=== PATIENT | female | born 1955 | race Caucasian/White ===

== ENCOUNTER 2017-05-28 00:38 | Emergency (ER) | payer OTHER ==
[~2017-05-28] VITALS: Ht 152.4 cm; Wt 65.0 kg
[~2017-05-28 00:38] MED LIST: AMLO-147 PO; ATOR20TA38 PO; BENA40TA41 PO; FAMO40TA52 PO; HYD25 PO; INSU100C SC; LANT3I SC; MAG355OR15 PO; MTF1000T PO; ONDA-43 PO; PANT40TA4 PO; PERCOCET PO; PROP20TA4 PO
[2017-05-28 00:42] VITALS: Ht 152.4 cm; Wt 65.0 kg
[2017-05-28] MEDS ORDERED: ONDANSETRON 4 MG INJ IV STA (00:44)
[2017-05-28] MEDS ORDERED: morphine 4 MG/ML VIAL IV STA (00:44)
[2017-05-28 01:21] LABS: ADD SCAN DIFF NO
--- NOTE | 2017-05-28 01:22 | RADRPT ---
PROCEDURE: XR Chest. CLINICAL INDICATION: Chest pain. TECHNIQUE: Single frontal view of the chest. COMPARISON: None FINDINGS: The cardiomediastinal silhouette is within normal limits. The lungs are clear. No signs of pleural f luid or pneumothorax are seen. The osseous structures and soft tissues are unremarkable. IMPRESSION: No evidence for active cardiopulmonary disease. RPTAT: [facility] Physician Bruna Date Time Electronically viewed and signed by Physician Bruna on 05/28/2017 01:22 RS/
[2017-05-28 01:27] LABS: BASOPHILS % 0.8 % (0.0-2.0); EOSINOPHILS # 0.1 10^3/ul (0.0-0.5); HEMATOCRIT 37.4 % (37.0-47.0); HEMOGLOBIN 13.4 g/dl (12.0-16.0); LYMPHOCYTES # 1.8 10^3/ul (0.8-2.9); LYMPHOCYTES % 46.2 % (15.0-51.0); MEAN CORPUSCULAR HEMOGLOBIN 32.6 pg (29.0-33.0); MEAN CORPUSCULAR HGB CONC 35.8 g/dl (32.0-37.0); MEAN PLATELET VOLUME 10.8 fl (7.4-10.4); MONOCYTE # 0.4 10^3/ul (0.3-0.9); MONOCYTES % 10.6 % (0.0-11.0); NEUTROPHIL # 1.6 10^3/ul (1.6-7.5); NEUTROPHILS % 39.1 % (39.0-77.0); PLATELET COUNT 102 10^3/UL (140-415); RED BLOOD COUNT 4.11 10^6/ul (4.20-5.40); RED CELL DISTRIBUTION WIDTH 13.2 % (11.5-14.5)
[2017-05-28 01:38] LABS: INR 1.15; PROTIME 14.7 Sec (12.2-14.2); PT RATIO 1.1
[2017-05-28 01:39] LABS: PARTIAL THROMBOPLASTIN TIME 28.6 Sec (25.0-35.0)
[2017-05-28 01:42] LABS: ALANINE AMINOTRANSFERASE 62 IU/L (13-69); ALBUMIN 3.6 g/dl (3.3-4.9); ALBUMIN/GLOBULIN RATIO 0.87; ALKALINE PHOSPHATASE 404 IU/L (42-121); ANION GAP 15 (8-16); ASPARTATE AMINO TRANSFERASE 79 IU/L (15-46); BLOOD UREA NITROGEN 11 mg/dl (7-20); CALCIUM 9.3 mg/dl (8.4-10.2); CARBON DIOXIDE 21 mmol/L (21-31); CHLORIDE 105 mmol/L (97-110); CREATININE 0.48 mg/dl (0.44-1.00); GLUCOSE 291 mg/dl (70-220); POTASSIUM 3.6 mmol/L (3.5-5.1); SODIUM 137 mmol/L (135-144); TOTAL PROTEIN 7.7 g/dl (6.1-8.1)
[2017-05-28 01:54] LABS: B-TYPE NATRIURETIC PEPTIDE 88 PG/ML (0-125)
--- NOTE | 2017-05-28 02:02 | ERD ---
ER Documentation Chief Complaint Date/Time DATE: 05/28/17 TIME: 02:00 Chief Complaint billateral leg pain x 3 hours HPI This is a 61-year-old female comes in with complaints of acute on chronic bilateral lower extremity pain. Patient has a history of this chronically. She said today it got worse. No trauma. No fevers no chills. No soft saddle anesthesia. No bowel or bladder incontinence. No other current complaints. Pain is mild to moderate in intensity. Blood pressure was noted to be elevated in triage. Denies any chest pain shortness breath nausea vomiting fevers chills or palpitations. No change in visual acuity or headache ROS All systems reviewed and are negative except as per history of present illness. Medications Home Meds Reported Medications Benazepril Hcl* (Benazepril Hcl*) 40 Mg Tablet, 40 MG PO DAILY, #30 TAB 06/07/16 Metformin* (Glucophage*) 1,000 Mg Tablet, 1000 MG PO BID, #60 TAB 06/07/16 Propranolol Hcl* (Propranolol Hcl*) 20 Mg Tablet, 20 MG PO BID, TAB 06/07/16 Atorvastatin Calcium* (Atorvastatin Calcium*) 20 Mg Tablet, 20 MG PO QHS, #30 TAB 06/07/16 Pantoprazole* (Pantoprazole*) 40 Mg Tablet.dr, 40 MG PO DAILY, TAB 06/07/16 Amlodipine Besylate* (Amlodipine Besylate*) 10 Mg Tablet, 10 MG PO DAILY, #30 TAB 06/07/16 Hydrochlorothiazide* (Hydrochlorothiazide*) 25 Mg Tab, 25 MG PO DAILY, #30 TAB 06/07/16 Insulin Glargine* (Lantus*) 100 Unit/Ml Soln, 45 UNIT SC DAILY, #1 VIAL 06/07/16 Insulin Lispro (Humalog) 100 U/Ml Cartridge, 10 UNITS SC TID, EA 06/07/16 Discontinued Scripts Oxycodone Hcl/Acetaminophen (Percocet) 1 Tab Tab, 1 TAB PO BID for PAIN, #12 TAB Prov:LYDIA TESFAYE MD 06/07/16 Famotidine* (Famotidine*) 40 Mg Tablet, 40 MG PO DAILY, #30 TAB Prov:LYDIA TESFAYE MD 06/07/16 Ondansetron Hcl* (Zofran*) 4 Mg Tab, 4 MG PO TID Y for NAUSEA AND OR VOMITING, # 12 TAB Prov:LYDIA TESFAYE MD 06/07/16 Mag Hydrox/Al Hydrox/Simeth (Maalox Ms Liquid) 360 Ml Oral.susp, 2 TSP PO TID, # 24 OZ Prov:LYDIA TESFAYE MD 06/07/16 Allergies Allergies: Coded Allergies: No Known Allergy (Unverified , 05/28/17) PMhx/Soc History of Surgery: Yes (HYSTERECTOMY) Anesthesia Reaction: No Hx Neurological Disorder: No Hx Respiratory Disorders: No Hx Cardiac Disorders: Yes (HTN) Hx Psychiatric Problems: No Hx Miscellaneous Medical Probl: No Hx Alcohol Use: No Hx Substance Use: No Hx Tobacco Use: No Smoking Status: Never smoker Physical Exam Vitals Vital Signs Date Time Temp Pulse Resp B/P Pulse Ox O2 Delivery O2 Flow Rate FiO2 05/28/17 00:42 97.7 90 21 223/86 100 Physical Exam Const: [] Head: Atraumatic Eyes: Normal Conjunctiva ENT: Normal External Ears, Nose and Mouth. Neck: Full range of motion..~ No meningismus. Resp: Clear to auscultation bilaterally Cardio: Regular rate and rhythm, no murmurs Abd: Soft, non tender, non distended. Normal bowel sounds Skin: No petechiae or rashes Back: No midline or flank tenderness Ext: No cyanosis, or edema Neur: Awake and alert Psych: Normal Mood and Affect Result Diagram: 05/28/17 0100 05/28/17 0100 Results 24 hrs Laboratory Tests Test 05/28/17 01:00 White Blood Count 4.010^3/ul Red Blood Count 4.1110^6/ul Hemoglobin 13.4g/dl Hematocrit 37.4% Mean Corpuscular Volume 91.0fl Mean Corpuscular Hemoglobin 32.6pg Mean Corpuscular Hemoglobin Concent 35.8g/dl Red Cell Distribution Width 13.2% Platelet Count 67348^3/UL Mean Platelet Volume 10.8fl Neutrophils % 39.1% Lymphocytes % 46.2% Monocytes % 10.6% Eosinophils % 3.0% Basophils % 0.8% Nucleated Red Blood Cells % 0.0/100WBC Neutrophils # 1.610^3/ul Lymphocytes # 1.810^3/ul Monocytes # 0.410^3/ul Eosinophils # 0.110^3/ul Basophils # 0.010^3/ul Nucleated Red Blood Cells # 0.010^3/ul Prothrombin Time 14.7Sec Prothrombin Time Ratio 1.1 INR International Normalized Ratio 1.15 Activated Partial Thromboplast Time 28.6Sec Sodium Level 137mmol/L Potassium Level 3.6mmol/L Chloride Level 105mmol/L Carbon Dioxide Level 21mmol/L Anion Gap 15 Blood Urea Nitrogen 11mg/dl Creatinine 0.48mg/dl Glucose Level 291mg/dl Calcium Level 9.3mg/dl Total Bilirubin 1.0mg/dl Direct Bilirubin 0.00mg/dl Indirect Bilirubin 1.0mg/dl Aspartate Amino Transf (AST/SGOT) 79IU/L Alanine Aminotransferase (ALT/SGPT) 62IU/L Alkaline Phosphatase 404IU/L Troponin I Pending B-Type Natriuretic Peptide Pending Total Protein 7.7g/dl Albumin 3.6g/dl Globulin 4.10g/dl Albumin/Globulin Ratio 0.87 Current Medications Medications (Trade) Dose Ordered Sig/Robert Route PRN Reason Start Time Stop Time Status Last Admin Dose Admin Morphine Sulfate (morphine) 4 mg ONCE STAT IV 05/28/17 00:44 05/28/17 00:46 DC 05/28/17 00:53 Ondansetron HCl (Zofran Inj) 4 mg ONCE STAT IV 05/28/17 00:44 05/28/17 00:46 DC 05/28/17 00:53 Procedures/MDM EKG: Rate/Rhythm: Normal Sinus Rhythm QRS, ST, T-waves: No changes consistent w/ acute ischemia Impression: No evidence of ischemia or arrhythmia Chest X-ray 1V Interpreted by me: Soft Tissue: No acute abnormalities Bones: No acute abnormalities Mediastinum/Cardiac Silhouette/Lungs: No acute abnormalities Medical assessment: 58-year-old female with acute on chronic leg pain likely secondary to neuropathy. Pain resolved. Will be discharged home. Patient's blood pressure was elevated (>120/80) but appears stable without evidence of hypertension emergency or urgency. The patient was counseled about the risks of hypertension and urged to pursue outpatient monitoring and therapy within a week with their primary care physician. Departure Diagnosis: Primary Impression: Leg pain, bilateral Condition: Stable CHAPIN GO May 28, 2017 02:02
[2017-05-28] MEDS ORDERED: TRAM50TA2 PO (02:06)
[2017-05-28] MEDS ORDERED: HYDROmorphONE 1 MG/ML SYG IM STA (02:29)
[2017-05-28 02:30] VITALS: BP 175/73; PULSE 73; RESP 18
[2017-05-28 02:47] LABS: TROPONIN-I < 0.012 ng/ml (0.00-0.12)
== END 2017-05-28 02:40 | disposition home or self-care (01) ==
LOC: E/R 00:38
DX: M79.605 Pain in left leg (principal); M79.604 Pain in right leg; I10 Essential (primary) hypertension; E11.9 Type 2 diabetes mellitus without complications; Z79.4 Long term (current) use of insulin; Z79.84 Long term (current) use of oral hypoglycemic drugs
CPT/HCPCS: 36415; 71010; 80053; 83880; 84484; 85025; 85610; 85730; 93005; 96372; 96374; 96375; J1170; J2270; J2405; Z7502

== ENCOUNTER 2017-11-11 16:24 | Emergency (ER) | payer SELFPAY ==
[~2017-11-11] VITALS: Wt 47.0 kg
[~2017-11-11 16:24] MED LIST changes: -FAMO40TA52 PO; -HYD25 PO; +HYDR25TA6 PO; -MAG355OR15 PO; -ONDA-43 PO; -PERCOCET PO; +TRAM50TA2 PO
== END 2017-11-11 22:03 | disposition left against medical advice (07) ==
LOC: E/R 16:24
DX: Z53.21 Procedure and treatment not carried out due to patient leaving prior to being seen by health care provider (principal)